=== PATIENT | female | born 1985 | race Caucasian/White ===

== ENCOUNTER 2019-11-28 20:52 | Emergency (ER) | payer OTHER ==
--- OUTSIDE RECORDS SUMMARY | 2019-11-28 20:55 | XMS REPORT | Clinical Summary ---
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 extremity [facility] ed vessels as described above. [id number] Procedure Note Interface, Radiology Results Incoming - 03/15/2019 10:48 AM CDT EXAMINATION: US DUPLEX VENOUS LOWER EXTREMITY LEFT CLINICAL HISTORY: DVT COMPARISON: None. TECHNIQUE: Grayscale, color Doppler, an d spectral waveform analysis of the left lower extremity deep venous system was performed. The common femoral, superficial femoral, proximal deep femoral, greater saphenous, and popliteal veins were evaluated. The calf veins were also evaluated. FINDINGS: The left common femoral, superficial fem oral, and popliteal veins are compressible as is the limited evaluation of the right common femoral vein. They demonstrate normal venous waveforms and response to augmentation. There is flow in the visua lized calf veins. There is no evidence of a popliteal or B quincy's cyst. IMPRESSION: No evidence of DVT within the left lower extremity named vessels as described above. [id number] Performing Organization Address City/State/Zipcode Phone Number [facility] [address] [place] [address] XR Tibia Fibula 2 Vw Left (03/15/2019 10:09 AM CDT) Specimen Narrative Performed At EXAMINATION: XR TIBIA FIBULA 2 VW LEFT [facility] CLINICAL HISTORY: pain COMPARISON: None. IMPRESSION: 1.No fracture, dislocation, or focal oss eous lesion is seen. [id number] Procedure Note Hm Interface, Radiology Results Incoming - 03/15/2019 10:14 AM CDT EXAMINATION: XR TIBIA FIBULA 2 VW LEFT CLINICAL HISTORY: pain COMPARISON: None. IMPRESSION: 1.No fracture, dislocation, or focal oss eous lesion is seen. [id number] Performing Organization Address City/State/Zipcode Phone Number [facility] [address] [place] [address] Estimated GFR (03/12/2019 10:00 AM CDT)Only the most recent of2 resultswithin the time period is included. Estimated GFR >=90 mL/min/1.73 [facility] Comment: m2 [employer] Catergory Units Interpretation G1 >=90 Normal or high G2 60-89 Mildly decreased G3a 45-59 Mildly to moderately decreas ed G3b 30-44 Moderately to severely decre ased G4 15-29 Severely decreased G5 <15 Kidney failure The eGFR was calculated using the Chronic Kidney Disea se Epidemiology Collaboration (CKD-EPI) equation. Interpretation is based on recommendations of the National Kidney Foundation-Kidney Disease Outcomes Singh lity Initiative (NKF-KDOQI) published in 2014. Specimen Plasma specimen Performing Organization Address City/State/Zipcode Phone Number [facility] DEPARTMENT OF PATHOLOGY AND [address] [place], [place] [address] [facility] [address] [place], [place] [address] CBC with platelet and differential (03/12/2019 10:00 AM CDT)Only the most recent of2 resultswithin the time period is included. WBC 7.8 4.2 - 11.0 k/uL [facility] RBC 5.31 4.04 - 5.86 [facility] m/uL [employer] HGB 15.2 11.5 - 15.3 [facility] g/dL [employer] HCT 45.9 (H) 34.0 - 45.0 % [facility] MCV 86.4 80.0 - 98.0 fL [facility] MCH 28.6 27.0 - 34.0 pg [facility] MCHC 33.1 31.5 - 36.5 [facility] g/dL [employer] RDW - SD 45.4 37.0 - 51.0 fL [facility] MPV 9.8 7.4 - 10.4 fL [facility] Platelet count 278 150 - 400 k/uL [facility] Nucleated RBC 0.00 /100 WBC [facility] Neutrophils 57.3 36.0 - 66.0 % [facility] Lymphocytes 31.1 24.0 - 44.0 % [facility] Monocytes 10.0 (H) 0.0 - 6.0 % [facility] Eosinophils 0.9 0.0 - 6.0 % [facility] Basophils 0.4 0.0 - 1.2 % [facility] Immature granulocytes 0.3 0.0 - 1.0 % [facility] Specimen Blood Performing Organization Address City/[facility] Phone Number [facility] DEPARTMENT OF PATHOLOGY AND [address] [place] [address] Lipase level (03/12/2019 10:00 AM CDT) Pathologist Sig nature Lipase 16 13 - 60 U/L [facility] Specimen Plasma specimen Performing Organization Address City/[facility] Phone Number [facility] DEPARTMENT OF PATHOLOGY AND [address] [place] [address] [address] Comprehensive metabolic panel (03/12/2019 10:00 AM CDT)Only the most recent of2 resultswithin the time period is included. Pathologist Sig nature Sodium 139 135 - 150 mEq/L [facility] Potassium 3.9 3.5 - 5.0 mEq/L [place] [facility] Chloride 98 98 - 112 mEq/L [facility] CO2 28 24 - 31 mmol/L [facility] Anion gap 13@ANIO 7 - 15 mEq/L [facility] BUN 8 7 - 18 mg/dL [facility] Creatinine 0.80 0.50 - 0.90 [facility] mg/dL [employer] Glucose 79 65 - 100 mg/dL [facility] Calcium 10.2 8.3 - 10.2 mg/dL [facility] Protein 8.4 (H) 6.3 - 8.3 g/dL [facility] Albumin 4.7 3.5 - 5.0 g/dL [facility] A/G ratio 1.3 0.7 - 3.8 [facility] Alkaline phosphatase 83 0 - 104 U/L [facility] AST 31 10 - 35 U/L [facility] ALT 39 5 - 50 U/L [facility] Total bilirubin 0.8 0.2 - 1.2 mg/dL [facility] Specimen Plasma specimen Performing Organization Address City/State/Zipcode Phone Number [facility] DEPARTMENT OF PATHOLOGY AND [address] [place], [place] [address] [address] Gram stain (03/01/2019 11:42 AM CDT) Gram stain result Many WBC's [facility] Many Gram negative rods [facility] Comment: Specimen Information Specimen Source: Urine Specimen Site: Clean catch Specimen Urine Performing Organization Address City/State/Zipcode Phone Number [facility] DEPARTMENT OF PATHOLOGY AND [address] [place], [place] [address] [facility] [address] [place] [address] after 11/27/2018 Insurance Payer Benefit Plan / Subscriber ID Effective Dates Phone Addre ss Type [facility] xxxxxxxxx 2019-[facility] nt MEDICARE MEDICARE PART xxxxxxxxxxx 2019-[place], [place] Medicare A AND B nt Advance Directives For more information, please contact: [phone] 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
--- OUTSIDE RECORDS SUMMARY | 2019-11-28 20:56 | XMS REPORT | Clinical Summary ---
:1985 Author Organization [facility] Address [address] [place] [address] Care Team Providers Name Role Phone Unavailable Primary Care Provider Unavailable Allergies Active Allergy Reactions Severity Noted Date Comments Amoxicillin Shortness Of Breath High 02/09/2019 Penicillins Shortness Of Breath High 02/09/2019 Acetaminophen Rash Low 02/09/2019 Medications Medication Sig Dispensed Refills Start Date End Date Status gabapentin TK 1 TO 2 CS 1 03/25/2019 Activ e (NEURONTIN) 300 MG PO IN THE capsule MORNING AND IN THE JAVY promethazine-codeine Take 5 mLs by 200 mL 0 03/31/2019 Active (PHENERGAN WITH mouth 2 (two) CODEINE) 6.25-10 mg/5 times daily mL syrup as needed (chronic pain). Max Daily Amount: 10 mLs apixaban (ELIQUIS) 5 Take 1 tablet 90 tablet 0 04/02/2019 Active mg Tab tablet (5 mg total) by mouth daily. ALPRAZolam (XANAX) 2 Take 1 tablet 20 tablet 0 04/23/2019 Active MG tabletIndications: (2 mg total) Anxiety, Panic attack by mouth every night as needed for Sleep. Max Daily Amount: 2 mg cyclobenzaprine Take 10 mg by 0 02/08/2019 Discontinued (FLEXERIL) 10 MG mouth daily. 9 tablet ALPRAZolam (XANAX) 2 Take 2 mg by 0 Discontinued MG tablet mouth every 9 night as needed for Sleep Patient is taking 1 1/2 a day. . apixaban (ELIQUIS) 5 Take 5 mg by 0 Discontinued mg Tab tablet mouth daily . 9 ALPRAZolam (XANAX) 2 Take 1 tablet 30 tablet 0 02/11/201902/17 Discontinued MG tablet (2 mg total) 9 by mouth every night as needed for Sleep Patient is taking 1 1/2 a day. . Max Daily Amount: 2 mg apixaban (ELIQUIS) 5 Take 1 tablet 30 tablet 0 02/23/201903/19 Discontinued mg Tab tablet (5 mg total) 9 by mouth daily. promethazine-codeine Take 5 mLs by 0 02/24 Discontinued (PHENERGAN WITH mouth every 4 9 CODEINE) 6.25-10 mg/5 (four) hours mL syrup as needed for Cough. promethazine-codeine Take 5 mLs by 400 mL 0 02/24/201902/18 Discontinued (PHENERGAN WITH mouth 3 9 CODEINE) 6.25-10 mg/5 (three) times mL syrup daily as needed (chronic pain). Max Daily Amount: 15 mLs ALPRAZolam (XANAX) 2 TAKE 1 TABLET 30 tablet 0 03/11/201903/19 Discontinued MG tablet BY MOUTH 9 EVERY NIGHT AT BEDTIME NEEDED FOR SLEEP DIRECTED. ALPRAZolam (XANAX) 2 Take 1 tablet 30 tablet 0 03/15/201902/17 Discontinued MG tablet (2 mg total) 9 by mouth every night as needed for Sleep Patient is taking 1 1/2 a day. . Max Daily Amount: 2 mg ALPRAZolam (XANAX) 2 Take 1 tablet 30 tablet 0 03/15/2019 Discontinued MG tablet (2 mg total) 9 by mouth every night as needed for Sleep Patient is taking 1 1/2 a day. . Max Daily Amount: 2 mg promethazine-codeine Take 5 mLs by 400 mL 0 03/23/201903/19 Discontinued (PHENERGAN WITH mouth 3 9 CODEINE) 6.25-10 mg/5 (three) times mL syrup daily as needed (chronic pain). Max Daily Amount: 15 mLs ALPRAZolam (XANAX) 2 Take 1 tablet 30 tablet 0 03/23/2019 Discontinued MG tabletIndications: (2 mg total) 9 Anxiety, Panic attack by mouth every night as needed for Sleep Patient is taking 1 1/2 a day. . Max Daily Amount: 2 mg Active Problems Problem Noted Date Brachial plexus lesions 05/14/2019 Encounters Date Type Specialty Care Team Description 10/12/2019 Hospital Computed Tomography Mark, No Show [facility] Computed Tomography Mark, Canceled (Patient) Encounter Doris Trejo DO 1, [facility] Room 09/28/2019 Hospital Computed Tomography Mark, Canceled (Patient) Encounter Doris Trejo DO 1, [facility] Room 09/27/2019 Travel 09/17/2019 Outside Orders Central Scheduling Mark, Vertebr obasilar Doris Trejo DO insufficiency (Primary Dx) 09/17/2019 Outside Orders Central Scheduling Gus Parks MD 08/17/2019 Outside Orders Central Scheduling Mark, Loss of consciousness (HCC) (Primary Dx); Doris Trejo DO Vertebrobasil ar insufficiency; Seizure (HCC) 07/22/2019 Hospital Radiology Yash 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 Interventional Yash Espinal Thoracic ou tlet Radiology MD Yury syndrome (Prima ry Dx) 05/14/2019 Surgery DawnLuis brar ANGIOGRAM,CO JHONNY Pulido MD 05/14/2019 Hospital [facility] Brachial ple xus Encounter MD Ashok lesions 05/14/2019 Orders Only General Internal Medicine 04/19/2019 Refill Internal Medicine Pj Gill, Anxiety; Panic attack 04/19/2019 Telephone Internal Medicine Pj Gill, pain med icine 03/31/2019 Office Visit Internal Medicine Pj Gill, Vision c hanges (Primary Dx); Elevated CK; PCB (post coita l bleeding); Screening for c ervical cancer; Anxiety; Chronic deep ve in thrombosis (DVT) of other vein of both upper extremities (HCC); Chronic pain of multiple joints 03/29/2019 Refill Internal Medicine Pj Gill MD 03/24/2019 Telephone Internal Medicine Pj Gill medicmarjorie on 03/22/2019 Telephone Internal Medicine Pj Gill Medicati on Refill 03/18/2019 Refill Internal Medicine Pj Gill MD 03/14/2019 Telephone Internal Medicine Kenny Izabella lisa angeles her MD Angeline med down toilet 03/13/2019 Refill Internal Medicine Pj Gill MD 03/11/2019 Refill Internal Medicine Pj Gill MD 03/10/2019 Refill Internal Medicine Pj Gill MD 02/24/2019 Office Visit Internal Medicine Pj Gill, Chronic deep vein thrombosis (DVT) of other vein of both upper extremities (HCC) (Primary Dx); MD Ceja and ti ngling; Chronic pain of multiple joints; Chest pain, uns pecified type; Elevated CK; Chronic neck pa in; SOB (shortness of breath) 02/23/2019 Refill Internal Medicine Pj Gill MD 02/23/2019 Travel 02/15/2019 Telephone Internal Medicine Pj Gill, Appointm ent 02/11/2019 Telephone Internal Medicine Pj Gill, out of X anax (Needs MD Urgent Refill) 02/09/2019 Office Visit Internal Medicine Pj Gill, Chronic deep vein thrombosis (DVT) of other vein of both upper extremities (HCC) (Primary Dx); MD Ceja and noemi ramirezling; Palpitation after 11/27/2018 Family History Medical History Relation Name Comments Heart disease Father Heart murmur Son Relation Name Status Comments Brother Alive Brother Alive Daughter Alive Father Mother Alive Son Alive Son Alive Social History Tobacco Use Types Packs/Day Years Used Date Former Smoker Cigarettes 0.5 Smokeless Tobacco: Never Used Tobacco Cessation: Ready to Quit: Yes; [place] Given: Yes Comments: quit 02/2019 Alcohol Use Drinks/Week oz/Week Comments Yes Alcohol Habits Answer Date Recorded How often do you have a drink containing alcohol? 2-3 times a week 02/09/2019 How many drinks containing alcohol do you have on a 1 or 2 02/09/2019 typical day when you are drinking? How often do you have six or more drinks on one Not asked occasion? Sex Assigned at Date Recorded Female 02/23/2019 6:13 AM CDT Job Start Date Occupation Industry Not on file Not on file Not on file Travel History Travel Start Travel End No recent travel history available. Last Filed Vital Signs Vital Sign Reading Time Taken Blood Pressure 124/71 07/22/2019 12:37 PM [employer] Pulse 60 07/22/2019 12:37 PM [employer] Temperature 36.7 C (98.1 F) 07/22/2019 12:37 PM [employer] Respiratory Rate 18 07/22/2019 12:37 PM [employer] Oxygen Saturation 100% 07/22/2019 12:37 PM [employer] Inhaled Oxygen Concentration - - Weight 67.6 kg (149 lb) 05/14/2019 6:28 AM [employer] Height 167.6 cm (5' 6") 05/14/2019 6:28 AM [employer] Body Mass Index 24.05 05/14/2019 6:28 AM [employer] Plan of Treatment Health Maintenance Due Date Last Done Comments INFLUENZA VACCINE (#1) 2020 CERVICAL CANCER SCREENING HPV AND PAP 03/31/2024 03/31/2019 , 03/31/2019 SMEAR (Age 30-65) Procedures Procedure Name Priority Date/Time Associated Diagnosis Comme nts IR SCALENE MUSCLE Routine 07/22/2019 12:30 PM Thoracic outlet Results for this BLOCK [employer] syndrome procedure are i n the results section. CARDIAC CATH REPORT 05/21/2019 10:20 AM - SCAN [employer] ANGIOGRAM,CORONARY 05/14/2019 10:19 AM Brachial plexus [employer] lesions Case Notes (2) 6TOP ECG 12-LEAD Routine 05/14/2019 8:32 AM [employer] Procedure Note - Interface, External Ris In - 05/14/2019 7:41 AM [employer] Ventricular Rate 66 BPM Atrial Rate 66 BPM P-R Interval 158 ms QRS Duration 90 ms Q-T Interval 422 ms QTC Calculation(Bazett) 442 ms P Stonewall 70 degrees R Stonewall 46 degrees T Stonewall 60 degrees Normal sinus rhythm Normal ECG No previous ECGs available ECG 12-LEAD Routine 05/14/2019 8:32 Results for this AM [employer] procedure are i n the results section. POCT , URINE Routine 05/14/2019 7:41 Re sults for this AM [employer] procedure are i n the results section. BASIC METABOLIC PANEL Routine 05/14/2019 7:13 Re sults for this (7) AM [employer] procedure are i n the results section. CREATINE KINASE (CK) Routine 03/31/2019 12:31 Elevated CK Res ults for this PM [employer] procedure are i n the results section. PAP IG, RFX HPV ASCU AP Routine 03/31/2019 12:14 Screening for Re sults for this PM [employer] cervical cancer procedure ar e in the results section. CREATINE KINASE (CK) Routine 02/24/2019 2:15 Elevated CK Res ults for this PM CDT procedure are i n the results section. COMPREHENSIVE Routine 02/24/2019 2:15 Chest pain, Results fo r this METABOLIC PANEL PM CDT unspecified type procedur e are in the results section. CBC W/PLT COUNT & Routine 02/24/2019 2:15 Chest pain, Result s for this AUTO DIFFERENTIAL PM CDT unspecified type proced ure are in the results section. ECG 12-LEAD Routine 02/24/2019 1:33 Chest pain, Results for this PM CDT unspecified type procedure a re in the results section. after 11/27/2018 Results IR Scalene Muscle Block (07/22/2019 12:30 PM [employer]LET [employer]) Specimen Narrative Performed At FINAL REPORT [employer] Ultrasound guided scalene block, 0 Clinical History: Left shoulder and uppe r extremity pain and numbness. Sedation: None. Clerk Manager:Marilou. Route Rider Supervisor:None. Estimated Blood Loss: None. Specimen: None. Technique: Informed consent was obtained.After the skin was prepped and draped in the usual sterile manner,a 25 gau ge needle was advanced into the inferior aspect of the left anterior sca lorraine muscle belly, under direct sonographic observation. A mixtur e of 4 mL of 1% lidocaine and 1 mL/40 mg of Kenalog was injected. The needle was removed. The patient tolerated the procedure well, wi thout immediate complications.The patient was discha rged from the department in good condition. Impression: Successful and uncomplicated ultrasound guided left anterior scalene block. Signed: Leif Zamarripa MD Report Verified Date/Time:07/22/2019 14:19:42 Reading Location: [facility] P048 Angio Body Reading Room Procedure Note Interface, External Ris In - 07/22/2019 2:21 PM [employer] FINAL REPORT Ultrasound guided scalene block, 0 Clinical History: Left shoulder and uppe r extremity pain and numbness. Sedation: None. Clerk Manager: Marilou. Route Rider Supervisor: None. Estimated Blood Loss: None. Specimen: None. Technique: Informed consent was obtained. After e skin was prepped and draped in the usual sterile manner, a 25 gauge needle was advanced into the inferior aspect of the left anterior sca lorraine muscle belly, under direct sonographic observation. A mixtur e of 4 mL of 1% lidocaine and 1 mL/40 mg of Kenalog was injected. The needle was removed. The patient tolerated the procedure well, wi thout immediate complications. The patient was discharg ed from the department in good condition. Impression: Successful and uncomplicated ultrasound guided left anterior scalene block. Signed: Leif Zamarripa MD Report Verified Date/Time: 07/22/2019 1 4:19:42 Reading Location: [facility] B1 P048 Angio Body Reading Room Performing Organization Address City/[facility]/[employer] Phone Number [employer] CARDIAC CATH REPORT - SCAN (05/21/2019 10:20 AM P[employer]PHLET [employer]) Narrative Performed At This result has an attachment that is no t available. ECG 12 lead (05/14/2019 8:32 AM [employer]PHLET [employer])Only the most recent of2 resultswithin the time period is included. Specimen Narrative Performed At Ventricular Rate 66 BPM [employer] Atrial Rate 66 BPM P-R Interval 158 ms QRS Duration 90 ms Q-T Interval 422 ms QTC Calculation(Bazett) 442 ms P Stonewall 70 degrees R Stonewall 46 degrees T Stonewall 60 degrees Normal sinus rhythm Normal ECG No previous ECGs available Confirmed by Lenin TONG BASANT ([id number]) on 05/14/2019 1 :22:58 PM Procedure Note Interface, External Ris In - 05/14/2019 1:23 PM [employer] Ventricular Rate 66 BPM Atrial Rate 66 BPM P-R Interval 158 ms QRS Duration 90 ms Q-T Interval 422 ms QTC Calculation(Bazett) 442 ms P Stonewall 70 degrees R Stonewall 46 degrees T Stonewall 60 degrees Normal sinus rhythm Normal ECG No previous ECGs available Confirmed by Lenin TONG BASANT ([id number]) o n 05/14/2019 1:22:58 PM Performing Organization Address City/[facility] Phone Number [employer] POCT , urine (05/14/2019 7:41 AM [employer]) Test Urine, POC Negative Control line present?, POC Yes Background clear?, POC Yes UPT Cassette Lot #, POC [id number] UPT Cassette Expiration Date, POC 2020-08-16 Specimen Basic Metabolic Panel (05/14/2019 7:13 AM [employer]) Sodium 137 136 - 145 meq/L [facility] Potassium 3.7 3.5 - 5.1 meq/L [facility] Chloride 104 98 - 107 meq/L [facility] CO2 27 22 - 29 meq/L [facility] BUN 9 7 - 21 mg/dL [facility] Creatinine 0.79 0.57 - 1.25 mg/dL [facility] Glucose 85 70 - 105 mg/dL [facility] Calcium 9.1 8.4 - 10.2 mg/dL [facility] EGFR 83Comment: ESTIMATED GFR IS mL/min/1.73 sq m [facility] NOT ACCURATE [facility] CLEARANCE IN PREDICTING GLOMERULAR FILTRATION RATE. ESTIMATED GFR IS NOT APPLICABLE FOR DIALYSIS PATIENTS. Specimen Blood Performing Organization Address City/[facility]/Zipcode Phone Number [facility] [address] [place] [place] [id number] CENTER Creatine Kinase (CK) (03/31/2019 12:31 PM [employer]PHLET [employer])Only the most recent of2 results within the time period is included. Creatine Kinase,Total,Serum 142 24 - 173 U/L [facility] 1 Specimen Blood Narrative Performed At [facility]formed at:[facility] - [facility] [address] [place], [place] Chef Manager: Shashank Gaitan MD, Phone:[phone] Performing Organization Address City/State/Zipcode Phone Number [facility] 1 PAP IG, RFX HPV ASCU (03/31/2019 12:14 PM [employer]PHLET [employer]RI[employer]) DIAGNOSIS: Comment [facility] 1 Comment: NEGATIVE FOR INTRAEPITHELIAL LESION OR MALIGNANC Y. FUNGAL ORGANISMS MORPHOLOGICALLY CONSISTENT WITH ROSHNI SPECIES ARE PRESENT. Specimen adequacy: Comment [facility] 1 Comment: Satisfactory for evaluation.Endocervical and /or squamous metaplastic cells (endocervical component) are present. Performed by: CommentComment: Sindhu Marquez [facility] 1 Supplier Quality Engineer QC reviewed by: CommentComment: Sindhu Braun [facility] 1 Supplier Quality Engineer (ASCP) . . [facility] 1 Note: Comment [facility] 2 Comment: The Pap smear is a screening test designed to ai d in the detection of premalignant and malignant conditions of the jose m rine cervix.It is not a diagnostic procedure and should not be used as t he sole means of detecting cervical cancer.Both false-positive and fals e-negative reports do occur. Test Methodology: Comment [facility] 2 Comment: This liquid based ThinPrep(R) pap test was scree maddie with the use of an image guided system. . Comment [facility] 1 Comment: The HPV DNA reflex criteria were not met with th is specimen result therefore, no HPV testing was performed. Specimen Cervical Cells Narrative Performed At Specimen Comment: Source.............Cer vix;Endocervix [facility] Specimen Comment: Other..............Pos t Menopausal Specimen Comment: No. of containers..01 ThinPrep Vial Performed at:01 - [place] [address] Chef Manager: Shashank Gaitan MD, Phone:[phone] Performed at:02 - [facility] [place] [address] Chef Manager: Shashank Gaitan MD, Phone:[phone] Performing Organization Address City/State/Zipcode Phone Number [facility] 2 CBC w/PLT Count Auto Differential (02/24/2019 2:15 PM CDT) WBC 5.5 3.4 - 10.8 x10E3/uL [facility] 1 RBC 4.98 3.77 - 5.28 x10E6/uL [facility] 1 Hemoglobin 14.2 11.1 - 15.9 g/dL [facility] 1 Hematocrit 41.8 34.0 - 46.6 % [facility] 1 MCV 84 79 - 97 fL [facility] 1 MCH 28.5 26.6 - 33.0 pg [facility] 1 MCHC 34.0 31.5 - 35.7 g/dL [facility] 1 RDW 15.1 12.3 - 15.4 % [facility] 1 Platelets 319 150 - 450 x10E3/uL [facility] 1 % Neutros 57 Not Estab. % [facility] 1 % Lymphs 30 Not Estab. % [facility] 1 % Monos 9 Not Estab. % [facility] % Eos 4 Not Estab. % [facility] % Baso 0 Not Estab. % [facility] 1 # Neutros 3.2 1.4 - 7.0 x10E3/uL [facility] 1 # Lymphs 1.7 0.7 - 3.1 x10E3/uL [facility] 1 # Monos 0.5 0.1 - 0.9 x10E3/uL [facility] 1 # Eos 0.2 0.0 - 0.4 x10E3/uL [facility] 1 Baso (Absolute) 0.0 0.0 - 0.2 x10E3/uL [facility] % Immature Grans 0 Not Estab. % [facility] 1 # Immature Grans 0.0 0.0 - 0.1 x10E3/uL [facility] 1 Specimen Blood Narrative Performed At Performed at:01 - [facility] [address] [place] [address] Chef Manager: Shashank Gaitan MD, Phone:[phone] Performing Organization Address City/State/Zipcode Phone Number [facility] Comprehensive metabolic panel (02/24/2019 2:15 PM CDT) Glucose, Serum 79 65 - 99 mg/dL [facility] 1 BUN 7 6 - 20 mg/dL [facility] 1 Creatinine, Serum 0.82 0.57 - 1.00 mg/dL [facility] 1 eGFR If NonAfricn Am 93 >59 mL/min/1.73 [facility] 1 eGFR If Africn Am 107 >59 mL/min/1.73 [facility] 1 BUN/Creatinine Ratio 9 9 - 23 [facility] 1 Sodium, Serum 142 134 - 144 mmol/L [facility] 1 Potassium, Serum 3.9 3.5 - 5.2 mmol/L [facility] 1 Chloride, Serum 102 96 - 106 mmol/L [facility] 1 Carbon Dioxide, Total 24 20 - 29 mmol/L [facility] 1 Calcium, Serum 9.5 8.7 - 10.2 mg/dL [facility] 1 Protein, Total, Serum 7.0 6.0 - 8.5 g/dL [facility] 1 Albumin, Serum 4.8 3.5 - 5.5 g/dL [facility] 1 Globulin, Total 2.2 1.5 - 4.5 g/dL [facility] 1 A/G Ratio 2.2 1.2 - 2.2 [facility] 1 Bilirubin, Total 0.5 0.0 - 1.2 mg/dL [facility] 1 Alkaline Phosphatase, S 68 39 - 117 IU/L [facility] 1 AST (SGOT) 19 0 - 40 IU/L [facility] 1 ALT (SGPT) 17 0 - 32 IU/L [facility] 1 Specimen Blood Narrative Performed At Performed at:01 - [facility] [address] [place], [place] Chef Manager: Shashank Gaitan MD, Phone:[phone] Performing Organization Address City/State/[place] Phone Number [facility] 1 after 11/27/2018 Insurance Payer Benefit Plan / Subscriber ID Type Phone Address Group MEDICARE MEDICARE A B xxxxxxxxxxx Medicare MEDICAID - MEDICAID MEDICAID COMM xxxxxxxxx Medicaid Contracted [facility] CHOICE [place], [place] (Work) [phone]
--- OUTSIDE RECORDS SUMMARY | 2019-11-28 20:57 | XMS REPORT ---
:1985 Author Name Admin, Matthews Address Unavailable Unavailable , Problems No Known Problems ENCOUNTERS Date Type Provider Location Encounter Diagnosis - Ambulatory [facility] UNK Encounter Behavioral Health - Ambulatory [facility] UNK Encounter Health Services VITAL SIGNS No Information Available Allergies No Known Allergy Information REASON FOR REFERRAL No Information Available RESULTS No Information Available HISTORY OF IMMUNIZATIONS No Information Available Medications No Known Medication Information SOCIAL HISTORY No Information Available FUNCTIONAL STATUS No Information Available MENTAL STATUS No Information Available MEDICAL EQUIPMENT No Information Available FAMILY HISTORY No Information Available INSURANCE PROVIDERS No Information Available ADVANCE DIRECTIVES No Information Available TREATMENT PLAN No Information Available HISTORY OF PROCEDURES No Information Available GOALS No Information Available HEALTH CONCERNS No Information Available
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
[2019-11-28 22:01] LABS: Absolute Lymphocytes (CBC) 2.2 K/uL (0.7-4.9); Basophils % 0.7 % (0-1.3); Hematocrit 42.1 % (36.0-45.0); Lymphocytes % 34.9 % (15.3-44.8); MPV 8.8 fL (7.6-11.3); RBC Red Blood Cell Count 4.96 M/uL (3.86-4.86)
[2019-11-28 22:10] LABS: Protime INR 1.13
[2019-11-28 22:18] LABS: ALT/SGPT 41 U/L (12-78); AST/SGOT 42 U/L (15-37); Albumin 4.2 g/dL (3.4-5.0); Alkaline Phosphatase 66 U/L (45-117); BUN Blood Urea Nitrogen 7 mg/dL (7-18); Bicarbonate 25 mmol/L (21-32); Bilirubin Direct 0.4 mg/dL (0-0.2); Bilirubin Total 1.3 mg/dL (0.2-1.0); Glucose Level 78 mg/dL (74-106); Protein, Total 7.6 g/dL (6.4-8.2); Sodium Level 139 mmol/L (136-145)
--- NOTE | 2019-11-29 00:26 | EDPHYS ---
Physician Documentation [facility] Name: Darian Connor Age: 34 yrs Sex: Female : 1985 Arrival Date: 11/28/2019 Time: 20:57 Bed 20 Private MD: ED Physician Percy Jimenez HPI: 11/28 01:23 This 34 yrs old Female presents to ER via EMS with complaints of Back Pain. tw4 01:23 The patient presents to the emergency department with anxiety. Onset: The tw4 symptoms/episode began/occurred today. Past psychiatric history: Prior diagnosis: no previous psychiatric diagnosis known. Associated signs and symptoms: The patient has no apparent associated signs or symptoms. 01:26 Associated signs and symptoms: Pertinent negatives: homicidal ideation, paranoia, tw4 suicide ideation. Severity of symptoms: At their worst the symptoms were mild in the emergency department the symptoms are unchanged. The patient has not experienced similar symptoms in the past. - Immunization history:: Adult Immunizations up to date. - Social history:: Smoking status: unknown. ROS: 01:26 Constitutional: Negative for fever, chills, and weight loss, Eyes: Negative for injury, tw4 pain, redness, and discharge, Cardiovascular: Negative for chest pain, palpitations, and edema, Respiratory: Negative for shortness of breath, cough, wheezing, and pleuritic chest pain, Abdomen/GI: Negative for abdominal pain, nausea, vomiting, diarrhea, and constipation, Back: Negative for injury and pain, Skin: Negative for injury, rash, and discoloration. 01:26 Neuro: Negative for headache, weakness, numbness, tingling, and seizure. 01:26 Neuro: Positive for 01:26 Psych: Positive for homicidal ideation, suicidal ideation. Exam: 01:29 Constitutional: This is a well developed, well nourished patient who is awake, alert, tw4 and in no acute distress. Head/Face: Normocephalic, atraumatic. Neck: Trachea midline, no thyromegaly or masses palpated, and no cervical lymphadenopathy. Supple, full range of motion without nuchal rigidity, or vertebral point tenderness. No Meningismus. Chest/axilla: Normal chest wall appearance and motion. Nontender with no deformity. No lesions are appreciated. Cardiovascular: Regular rate and rhythm with a normal S1 and S2. No gallops, murmurs, or rubs. Normal PMI, no JVD. No pulse deficits. Respiratory: Lungs have equal breath sounds bilaterally, clear to auscultation and percussion. No rales, rhonchi or wheezes noted. No increased work of breathing, no retractions or nasal flaring. Abdomen/GI: Soft, non-tender, with normal bowel sounds. No distension or tympany. No guarding or rebound. No evidence of tenderness throughout. Back: No spinal tenderness. No costovertebral tenderness. Full range of motion. MS/ Extremity: Pulses equal, no cyanosis. Neurovascular intact. Full, normal range of motion. Neuro: Awake and alert, GCS 15, oriented to person, place, time, and situation. Cranial nerves II-XII grossly intact. Motor strength 5/5 in all extremities. Sensory grossly intact. Cerebellar exam normal. Normal gait. Vital Signs: 11/27 21:00 BP 120 / 78; Pulse 72; Resp 18; Pulse Ox 98% ; ea 11/28 02:30 BP 118 / 67; Pulse 70; Resp 18; Pulse Ox 98% ; ea MDM: 00:16 Patient medically screened. tw4 01:29 Differential diagnosis: drug withdrawal. Data reviewed: vital signs, nurses notes. Data tw4 interpreted: Pulse oximetry: Interpretation: normal. Counseling: I had a detailed discussion with the patient and/or guardian regarding: the historical points, exam findings, and any diagnostic results supporting the discharge/admit diagnosis. 01:37 Special discussion: I discussed with the patient/guardian in detail that at this point tw4 there is no indication for admission to the hospital. It is understood, however, that if the symptoms persist or worsen the patient needs to return immediately for re-evaluation. 11/27 21:00 Order name: Acetaminophen tw4 11/27 21:00 Order name: Basic Metabolic Panel 11/27 21:00 Order name: CBC with Diff 11/27 21:00 Order name: ETOH Level 11/27 21:00 Order name: Hepatic Function 11/27 21:00 Order name: PT-INR 11/27 21:00 Order name: Ptt, Activated tw11/27 21:00 Order name: Salicylate 11/27 21:00 Order name: EKG - Nurse/Tech; Complete Time: 22:07 4 11/27 21:00 Order name: IV Saline Lock; Complete Time: :51 4 11/27 21:00 Order name: Labs collected and sent; Complete Time: :51 4 Administered Medications: No medications were administered Disposition: 11/29/19 00:25 Discharged to Home. Impression: Anxiety disorder, unspecified. - Condition is Stable. - Discharge Instructions: Generalized Anxiety Disorder. - Prescriptions for Cymbalta 20 mg Oral Capsule, Delayed Release(E.C.) - take 1 capsule by ORAL route every 12 hours; 60 capsule. - Medication Reconciliation Form, Thank You Letter, Antibiotic Education, Prescription Opioid Use form. - Follow up: Private Physician; When: Upon discharge from the Emergency Department; Reason: Recheck today's complaints, Continuance of care, Re-evaluation by your physician. - Problem is new. - Symptoms have improved. Signatures: Dispatcher [employer] EDMD Jazlyn Red RN RN ea Wadley, Terrence, MD MD 4 Corrections: (The following items were deleted from the chart) 02:54 00:25 11/29/2019 00:25 Discharged to Home. Impression: Anxiety disorder, unspecified. ea Condition is Stable. Discharge Instructions: Generalized Anxiety Disorder. Prescriptions for Cymbalta 20 mg Oral Capsule, Delayed Release(E.C.) - take 1 capsule by ORAL route every 12 hours; 60 capsule. and Forms are Medication Reconciliation Form, Thank You Letter, Antibiotic Education, Prescription Opioid Use. Follow up: Private Physician; When: Upon discharge from the Emergency Department; Reason: Recheck today's complaints, Continuance of care, Re-evaluation by your physician. Problem is new. Symptoms have improved. tw4
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
[2019-11-29 03:49] VITALS: O2SAT 98
[2019-11-29 03:50] VITALS: BP 118/67
== END 2019-11-29 02:54 | disposition home or self-care (01) ==
LOC: ER 20:52
DX: F41.9 Anxiety disorder, unspecified (principal)
CPT/HCPCS: 36415; 80048; 80076; 80320; 80329; 85025; 85610; 85730; 99284